=== PATIENT | female | born 1975 | race Caucasian/White ===

== ENCOUNTER 2022-07-24 16:13 | Emergency (ER) | payer OTHER ==
[~2022-07-24] VITALS: Ht 172.7 cm; Wt 68.0 kg
[~2022-07-24 16:13] MED LIST: ASPI325 PO
[2022-07-24 16:33] VITALS: BP 121/78
== END 2022-07-24 18:30 | disposition home or self-care (01) ==
LOC: ER 16:13
DX: R20.0 Anesthesia of skin (principal); Z88.8 Allergy status to other drugs, medicaments and biological substances; Z79.82 Long term (current) use of aspirin
CPT/HCPCS: 36415; 82607; 82746; 99284

== ENCOUNTER 2023-06-25 21:20 | Emergency (ER) | payer OTHER ==
[~2023-06-25] VITALS: Ht 172.7 cm; Wt 74.8 kg
[2023-06-25 21:33] VITALS: BP 124/86
== END 2023-06-25 22:44 | disposition home or self-care (01) ==
LOC: ER 21:20
DX: M79.81 Nontraumatic hematoma of soft tissue (principal); M79.605 Pain in left leg; Z88.8 Allergy status to other drugs, medicaments and biological substances; Z79.82 Long term (current) use of aspirin
CPT/HCPCS: 93971; 99283-25

== ENCOUNTER 2023-10-16 23:22 | Emergency (ER) | payer OTHER ==
[~2023-10-16] VITALS: Ht 175.3 cm; Wt 71.7 kg
[2023-10-16 23:28] VITALS: BP 116/69
== END 2023-10-17 01:46 | disposition home or self-care (01) ==
LOC: ER 23:22
DX: S61.211A Laceration without foreign body of left index finger without damage to nail, initial encounter (principal); D66 Hereditary factor VIII deficiency; I48.91 Unspecified atrial fibrillation; W26.0XXA Contact with knife, initial encounter; Z79.82 Long term (current) use of aspirin; Z88.8 Allergy status to other drugs, medicaments and biological substances
CPT/HCPCS: 12001; 99282-25

== ENCOUNTER 2024-01-27 17:54 | Emergency (ER) | payer OTHER ==
[~2024-01-27] VITALS: Ht 172.7 cm; Wt 71.7 kg
[2024-01-27 19:07] LABS: BASOPHILS ABSOLUTE AUTO 0.08 K/mm3 (0.00-0.23); BASOPHILS PERCENT AUTO 1 % (0-2); EOSINOPHILS ABSOLUTE AUTO 0.27 K/mm3 (0.00-0.68); EOSINOPHILS PERCENT AUTO 3 % (0-6); Hematocrit 39.4 % (33.0-51.0); Hemoglobin 13.4 g/dL (11.5-16.0); IMMATURE GRAN ABSOLUTE AUTO 0.03 K/mm3 (0.00-0.10); IMMATURE GRAN PERCENT AUTO 0 % (0-1); LYMPHOCYTES ABSOLUTE AUTO 2.21 K/mm3 (0.84-5.20); LYMPHOCYTES PERCENT AUTO 28 % (21-46); MONOCYTES PERCENT AUTO 6 % (4-13); Mean Corpuscular HGB 31.6 pg (26.0-34.0); Mean Corpuscular Volume 93 fL (80-100); Mean Platelet Volume 9.4 fL (9.1-12.4); NEUTROPHILS ABSOLUTE AUTO 4.95 K/mm3 (1.96-9.15); NEUTROPHILS PERCENT AUTO 62 % (41-73); Platelet Count 277 K/mm3 (150-400); RDW Coefficient Variation 12.1 % (11.7-14.2); RDW Standard Deviation 41.2 fL (35.1-46.3); Red Blood Cell Count 4.24 M/mm3 (3.80-5.20); White Blood Cell Count 8.04 K/mm3 (4.00-11.30)
[2024-01-27 19:38] LABS: Albumin, Blood 4.3 g/dL (3.4-5.0); Albumin/Globulin Ratio 1.4 (0.8-1.8); Bilirubin, Total 0.3 mg/dL (0.1-1.0); Bun/Creatinine Ratio 13.7 (12.0-20.0); Calcium, Blood 9.6 mg/dL (8.5-10.1); Creatinine, Blood 0.73 mg/dL (0.40-1.00); Globulin, Blood 3.1 g/dL (2.2-4.0); Potassium, Blood 3.9 mmol/L (3.5-5.5); Total Protein, Blood 7.4 g/dL (6.4-8.2)
[2024-01-27 20:45] VITALS: BP 139/88
== END 2024-01-27 20:56 | disposition home or self-care (01) ==
LOC: ER 17:54
PROVIDERS: Student in an Organized Health Care Education/Training Program
DX: K85.90 Acute pancreatitis without necrosis or infection, unspecified (principal); K62.5 Hemorrhage of anus and rectum; Z88.8 Allergy status to other drugs, medicaments and biological substances; Z79.82 Long term (current) use of aspirin
CPT/HCPCS: 76705; 80053; 82272; 83690; 85025; 99284-25

== ENCOUNTER 2024-09-09 21:24 | Emergency (ER) | payer OTHER ==
[~2024-09-09] VITALS: Ht 175.3 cm; Wt 80.3 kg
[2024-09-09 21:30] VITALS: BP 138/88
[2024-09-09] MEDS ORDERED: Ketorolac Tromethamine 15mg Vial IM ONE (21:50)
[2024-09-09] MEDS ORDERED: DOXY100 PO (21:57)
== END 2024-09-09 22:06 | disposition home or self-care (01) ==
LOC: ER 21:24
DX: L03.113 Cellulitis of right upper limb (principal); I48.91 Unspecified atrial fibrillation; Z88.8 Allergy status to other drugs, medicaments and biological substances
CPT/HCPCS: 96372; 99283-25; A9270; J1885

== ENCOUNTER 2025-01-16 19:12 | Emergency (ER) | payer OTHER ==
[~2025-01-16] VITALS: Ht 172.7 cm; Wt 76.2 kg
[~2025-01-16 19:12] MED LIST changes: +DOXY100 PO
[2025-01-16 19:23] VITALS: BP 142/88
[2025-01-16] MEDS ORDERED: Ondansetron 4 MG SoluTab SL ONE (19:30)
[2025-01-16] MEDS ORDERED: BACTRIM DS TAB1 EAC1 PO (21:56)
== END 2025-01-16 21:59 | disposition home or self-care (01) ==
LOC: ER 19:12
DX: L02.413 Cutaneous abscess of right upper limb (principal); Z88.8 Allergy status to other drugs, medicaments and biological substances
CPT/HCPCS: 10061; 99282-25; A9270